=== PATIENT | female | born 1985 | race Two or more races ===

== ENCOUNTER 2020-06-01 15:14 | Emergency (ER) | payer OTHER ==
[~2020-06-01] VITALS: Ht 167.6 cm; Wt 103.3 kg
[2020-06-01] MEDS ORDERED: DEXAMETHASONE SOD PHOS 10 MG/ML VIAL. PO ONE (17:15)
[2020-06-01] MEDS ORDERED: METH4TAB2 PO (17:38)
--- NOTE | 2020-06-01 17:39 | PHYS DOC ---
Past History Past Medical History: Anxiety, Depression Additional Past Medical Histor: Allergies (BRUNA DELGADO APRN) Past Surgical History: , Other Additional Past Surgical Histo: BREAST IMPLANTS; LASIC EYE SURGERY (BRUNA DELGADO APRN) Alcohol Use: None (BRUNA DELGADO APRN) General Adult EDM: Chief Complaint: FACE PROBLEM HPI: HPI: Patient is a 35-year-old female, accompanied by her , who presents emergency department with complaints of right lower lip swelling. Patient has had swelling in different areas around her mouth for several days now. She denies any new medications, cosmetics, lip balm's, detergents, fragrances, environmental exposures, or detergents. The patient denies any shortness of breath, wheezing, throat swelling, or sore throat. She denies any itching, dental pain, swollen lymph nodes, ear pain, headache, body aches, fatigue, nausea, vomiting, diarrhea, cough, or shortness of breath. She currently denies any pain. Patient states that she took Benadryl about an hour prior to arrival. Patient reports her only medications are Zyrtec and Zoloft. (BRUNA DELGADO APRN) Review of Systems: Review of Systems: Complete ROS is negative unless otherwise noted in HPI. (BRUNA DELGADO APRN) Current Medications: Current Meds: Current Medications Medications (Trade) Dose Ordered Sig/Shyanne Start Time Stop Time Status Last Admin Dose Admin Dexamethasone Sodium Phosphate (Decadron) 10 mg 1X ONCE 06/01/20 17:15 06/01/20 17:16 DC 06/01/20 17:15 10 MG (BRUNA DELGADO DENTAL HYGIENE ADMINISTRATIVE ASSISTANT) Allergies: Allergies: Allergies Coded Allergies Type Severity Reaction Last Updated Verified acetaminophen Allergy Unknown 06/01/20 Yes dextromethorphan Allergy Unknown 06/01/20 Yes doxylamine Allergy Unknown 06/01/20 Yes grass pollen Allergy Unknown 06/01/20 Yes pollen extracts Allergy Unknown 06/01/20 Yes pseudoephedrine Allergy Unknown 06/01/20 Yes watermelon Allergy Unknown 06/01/20 Yes (BRUNA DELGADO APRN) Physical Exam: PE: See Above Constitutional: Well developed, well nourished, no acute distress, non-toxic appearance, morbidly obese. [] HENT: Normocephalic, atraumatic, bilateral external ears normal, bilateral TMs normal, posterior pharynx normal, nose normal; see skin assessment. [] Eyes: PERRLA, EOMI, conjunctiva normal, no discharge. [] Neck: Normal range of motion, supple, nontender, no stridor. [] Cardiovascular:Heart rate regular rhythm Lungs & Thorax: Respirations even and unlabored, no retractions, no respiratory distress Skin: Warm, dry, no erythema, no rash; edema noted to the right lower lip, mild surrounding erythema, no warmth, no palpable or visible abscess. Concerning for contact dermatitis.. [] Extremities: No cyanosis, ROM intact, no edema. [] Neurologic: Alert and oriented X 3, no focal deficits noted. [] Psychologic: Affect normal, judgement normal, mood normal. [] (BRUNA DELGADO APRN) Current Patient Data: Vital Signs: Vital Signs Date Time Temp Pulse Resp B/P (MAP) Pulse Ox O2 Delivery O2 Flow Rate FiO2 06/01/20 15:15 100.8 87 18 132/83 (99) 98 Room Air (BRUNA DELGADO APRN) EKG: EKG: [] (BRUNA DELGADO APRN) Radiology/Procedures: Radiology/Procedures: [] (BRUNA DELGADO APRN) Heart Score: Risk Factors: Risk Factors: DM, Current or recent (<one month) smoker, HTN, HLP, family history of CAD, obesity. Risk Scores: Score 0 - 3: 2.5% MACE over next 6 weeks - Discharge Home Score 4 - 6: 20.3% MACE over next 6 weeks - Admit for Clinical Observation Score 7 - 10: 72.7% MACE over next 6 weeks - Early Invasive Strategies (BRUNA DELGADO APRN) Course & Med Decision Making: Course & Med Decision Making Pertinent Labs and Imaging studies reviewed. (See chart for details) Patient is a 35-year-old female who presents to the emergency department with complaints of lip swelling that has been intermittent for days. She states that it first it was the upper lip that was swollen on the left side than it was the entire upper lip, she has had swelling to the left lower lip, and now today the right lower lip. She denied any dysphagia, shortness of breath, or wheezing. Patient does not take any medications that I would suspect would cause angioedema. Symptoms have been ongoing. The patient was treated with 10 mg of Decadron by mouth in the ER. Prescription written for Medrol Dosepak. The patient was encouraged to continue taking a daily Zyrtec, Benadryl as needed, encourage her to follow-up with her primary care doctor for further evaluation, return to the ER if she develops worsening symptoms such as shortness of breath, difficulty swallowing, or worsening swelling. Patient and her verbalized an understanding of home care, medications, follow-up, and return to ED instructions and were in agreement with the plan of care. 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 No concern for airway compromise or impending airway compromise. Appears contact related edema in nature. She would benefit from continued supportive care, avoiding products such as lipstick/lip balm and close PCP follow-up to discuss need for outpatient display card writer referral. I agree to note and plan of care as stated (MELISSA LI DO) Amoron Disclaimer: Draglyla Disclaimer: This electronic medical record was generated, in whole or in part, using a voice recognition dictation system. (BRUNA DELGADO APRN) Departure Departure: Impression: Primary Impression: Lip swelling Disposition: DC HOME SELF CARE/HOMELESS Condition: STABLE Referrals: PCP,NO (PCP) Patient Instructions: Contact Dermatitis, [id number], Edema, [id number] Additional Instructions: Fill the prescription and use it as directed. Continue to take a daily Zyrtec. May take Benadryl every 6 hours as needed for itching. Follow-up with your primary care doctor in 1 to 2 days for reevaluation. Return to the ER if symptoms worsen, you develop shortness of breath, or difficulty swallowing. Scripts Methylprednisolone (MEDROL) 4 Mg Tab.ds.pk 1 PKG PO UD for inflammation for 6 Days, #1 PKG 0 Refills Prov: BRUNA DELGADO APRN 06/01/20 BRUNA DELGADO APRN Jun 01, 2020 17:39 MELISSA LI DO Jun 03, 2020 09:50
[2020-06-01 18:09] VITALS: BP 119/78
== END 2020-06-01 18:08 | disposition home or self-care (01) ==
LOC: ER 15:14
DX: K13.0 Diseases of lips (principal); Z88.6 Allergy status to analgesic agent; Z91.018 Allergy to other foods; Z88.8 Allergy status to other drugs, medicaments and biological substances
CPT/HCPCS: 99283; J1100